=== PATIENT | female | born 1950 | race African-American/Black ===

== ENCOUNTER 2017-01-09 17:38 | Emergency (ER) | payer BC, MEDICARE ==
[~2017-01-09] VITALS: Ht 172.7 cm; Wt 80.0 kg
[2017-01-09] MEDS ORDERED: EPINEPHRINE 1:1000 1 MG/ML AMP ONE (18:00)
[2017-01-09] MEDS ORDERED: AMIODARONE HCL 50MG/ML 3ML VIAL IV ONE (18:00)
[2017-01-09] MEDS ORDERED: SODIUM BICARBONATE 8.4% 1 MEQ/ML 50ML SYR IV ONE (18:00)
[2017-01-09] MEDS ORDERED: DOPAMINE 400MG IN DEXT 5% 250ML PREMIX IV ONE (18:00)
[2017-01-09] MEDS ORDERED: IPRATROPIUM BROMIDE (0.02%) 0.5MG/2.5ML NEB HHN STA (18:01)
[2017-01-09] MEDS ORDERED: METHYLPREDNISOLONE SOD SUCC 125 MG/2 ML VIAL IV STA (18:01)
[2017-01-09] MEDS ORDERED: ALBUTEROL (0.083%) 2.5MG/3ML NEB HHN STA ×2 (18:01→18:07)
[2017-01-09] MEDS ORDERED: METHYLPREDNISOLONE SOD SUCC 125 MG/2 ML VIAL ONE (18:07)
[2017-01-09] MEDS ORDERED: ALBUTEROL (0.083%) 2.5MG/3ML NEB ONE (18:08)
[2017-01-09] MEDS ORDERED: PROPOFOL 10MG/ML 100ML 100 ML IV SCH (18:15)
[2017-01-09] MEDS ORDERED: MAGNESIUM 2 G PREMIX 50 ML IV ONE (18:15)
[2017-01-09 18:22] LABS: CLARITY URINE CLEAR (CLEAR); COLOR URINE DARK YELLOW (YELLOW); GLUCOSE URINE NEGATIVE (NEGATIVE); KETONES URINE NEGATIVE (NEGATIVE); LEUKOCYTE ESTERASE URINE NEGATIVE (NEGATIVE); NITRITE URINE NEGATIVE (NEGATIVE); OCCULT BLOOD URINE 2+ (NEGATIVE); PROTEIN URINE 2+ (NEGATIVE); SPECIFIC GRAVITY URINE 1.027 (1.005-1.030)
[2017-01-09] MEDS ORDERED: EPINEPHRINE 0.1MG/ML (1:10,000) 10ML SYR ONE (18:22)
[2017-01-09] MEDS ORDERED: LEVOFLOXACIN 750MG PREMIX 150 ML IV ONE (18:30)
[2017-01-09] MEDS ORDERED: VANCOMYCIN 1,500 MG in DEXT 5% WATER 250 ML IV ONE (18:30)
[2017-01-09] MEDS ORDERED: PIPERACILLIN/TAZOBACTAM 3.375GM/50ML PREMIX IV ONE (18:30)
[2017-01-09 18:48] VITALS: BP 76/38
[2017-01-09] MEDS ORDERED: PIPERACILLIN/TAZ 3.375G PREMIX 50 ML IV SCH (19:00)
== END 2017-01-09 19:02 | disposition expired ==
LOC: ER 17:55 → CANBEDREQ 01-10 01:08
DX: I46.9 Cardiac arrest, cause unspecified (principal); J45.901 Unspecified asthma with (acute) exacerbation; J18.9 Pneumonia, unspecified organism; J44.0 Chronic obstructive pulmonary disease with (acute) lower respiratory infection
CPT/HCPCS: 31500; 51702; 71010; 81001; 82962; 92950; 94640; 96374; 96375; 99291; 99292; J0171; J0282; J1265; J2704; J2930; J3370; J3475; J3490; J7611; 94002; J7060